=== PATIENT | female | born 1970 | race African-American/Black ===

== ENCOUNTER 2019-09-27 19:11 | Inpatient (IN) | payer MEDICARE ==
[~2019-09-27] VITALS: Ht 170.2 cm; Wt 125.7 kg
[2019-09-27 19:15] VITALS: BP 163/71
[2019-09-27] MEDS ORDERED: COREG6.25 MG ORAL (19:26)
[2019-09-27] MEDS ORDERED: LEXAPRO20 MG ORAL (19:26)
[2019-09-27] MEDS ORDERED: LEVOTHYROXINE125 MCG ORAL (19:26)
[2019-09-27] MEDS ORDERED: HYDROCHLOROTHIA25 MG ORAL (19:26)
--- NOTE | 2019-09-27 19:47 | Diagnostic Imaging Report ---
EXAM: XR Chest, 1 View CLINICAL HISTORY: CP TECHNIQUE: Frontal view of the chest. COMPARISON: No relevant prior studies available. FINDINGS: Lungs: Minimal left lower lobe subsegmental atelectasis. Minimal linear interstitial prominence incidental, or could represent atypical infection, or could represent an essential pulmonary edema in the proper clinical context. No consolidation, pleural effusion, or pneumothorax. Pleural space: See above. Heart: Unremarkable. No cardiomegaly. Mediastinum: Unremarkable. Bones/joints: Unremarkable. Other findings: If there is further clinical concern, recommend CT. IMPRESSION: 1. Minimal linear interstitial prominence incidental, or could represent atypical infection, or could represent an essential pulmonary edema in the proper clinical context. 2. Minimal left lower lobe subsegmental atelectasis. 3. Otherwise no acute cardiopulmonary disease. 4. If there is further clinical concern, recommend CT.
[2019-09-27] MEDS: Nitroglycerin Subl 0.4mg tab SL PRN (19:53)
--- NOTE | 2019-09-27 20:14 | Emergency Room Report ---
History of Present Illness General Chief Complaint: Chest Pain Source: Patient Present Illness HPI 49-year-old female presents ED complaining of chest pain. Started 3 days ago. Left-sided, dull 9/10, radiating down the left arm. Also notes shortness of breath. States she is compliant with her meds. Denies cough or runny nose or congestion. Denies sick contacts or recent travel. Notes some leg swelling. No other aggravating relieving factors. Denies any other associated symptoms Allergies: Coded Allergies: No Known Allergies (Unverified , 09/27/19) COVID-19 Screening Contact w/high risk pt: No Recent Travel to affected area: No Experienced COVID-19 symptoms?: No Patient History Past Medical History: DM, HTN Past Surgical History: none Pertinent Family History: none Social History: Denies: smoking, alcohol use, drug use Now: No Immunizations: UTD Reviewed Nursing Documentation: PMH: Agreed; PSxH: Agreed Nursing Documentation-PMH Hx Hypertension: Yes Hx Diabetes: Yes Review of Systems All Other Systems: negative except mentioned in HPI Physical Exam Vital Signs Date Time Temp Pulse Resp B/P (MAP) Pulse Ox O2 Delivery O2 Flow Rate FiO2 09/27/19 19:14 98.1 77 20 151/77 (101) 98 Room Air 09/27/19 19:15 98 [id number] EP Interpretation: reviewed, normal General Appearance: no apparent distress, alert, GCS 15, non-toxic, obese Head: normocephalic, atraumatic Eyes: bilateral eye normal inspection, bilateral eye PERRL ENT: hearing grossly normal, normal pharynx, no angioedema, normal voice Neck: full range of motion, supple/symm/no masses Respiratory: chest non-tender, normal breath sounds, crackles, speaking full sentences Cardiovascular #1: regular rate, rhythm, no edema Cardiovascular #2: 2+ carotid (R), 2+ carotid (L), 2+ radial (R), 2+ radial (L) , 2+ dorsalis pedis (R), 2+ dorsalis pedis (L) Gastrointestinal: normal bowel sounds, non tender, soft, non-distended, no guarding, no rebound Rectal: deferred Genitourinary: normal inspection, no CVA tenderness Musculoskeletal: back normal, normal range of motion, gait/station normal, non- tender Neurologic: alert, motor strength/tone normal, oriented x3, sensory intact, responsive, speech normal Psychiatric: judgement/insight normal, memory normal, mood/affect normal, no suicidal/homicidal ideation Reflexes: 3+ bicep (R), 3+ bicep (L), 3+ tricep (R), 3+ tricep (L), 3+ knee (R) , 3+ knee (L) Skin: other - see nursing skin notes Lymphatic: no adenopathy Medical Decision Making Diagnostic Impression: Primary Impression: ACS (acute coronary syndrome) ER Course Hospital Course 49-year-old female presents ED complaining of left-sided chest pain, shortness of breath Differential diagnoses include: [place]/unstable angina, contusion, muscle strain, PTX, rib fracture Clinical course Patient placed on stretcher. on desk monitor. After initial history and physical I ordered labs, EKG, chest x-ray, nitro labs reviewed- no leukocytosis, hb/hct stable, electrolytes ok, trop negative EKG - NSR, no acute ischemic changes interpreted by me Chest x-ray- no acute process given aspirin. Case discussed with Dr. Hightower and he agreed to accept the patient to his service for further care and support I. I feel this is a highly complex case requiring extensive working including EKG/Rhythm strip, Xray/CT/US, Blood/urine lab work, repeat exams while in ED, and administration of strong opiates/narcotics for pain control, admission to hospital or close patient follow up. Diagnosis - ACS admitted to telemetry in serious condition Labs Test 09/27/19 19:50 White Blood Count 7.8 K/UL (4.8-10.8) Red Blood Count 4.55 M/UL (4.20-5.40) Hemoglobin 12.5 G/DL (12.0-16.0) Hematocrit 40.1 % (37.0-47.0) Mean Corpuscular Volume 88 FL (80-99) Mean Corpuscular Hemoglobin 27.5 PG (27.0-31.0) Mean Corpuscular Hemoglobin Concent 31.2 G/DL (32.0-36.0) Red Cell Distribution Width 14.1 % (11.6-14.8) Platelet Count 280 K/UL (150-450) Mean Platelet Volume 6.6 FL (6.5-10.1) Neutrophils (%) (Auto) 52.9 % (45.0-75.0) Lymphocytes (%) (Auto) 36.1 % (20.0-45.0) Monocytes (%) (Auto) 6.1 % (1.0-10.0) Eosinophils (%) (Auto) 3.7 % (0.0-3.0) Basophils (%) (Auto) 1.3 % (0.0-2.0) Sodium Level 142 MMOL/L (136-145) Potassium Level 3.6 MMOL/L (3.5-5.1) Chloride Level 106 MMOL/L (98-107) Carbon Dioxide Level 28 MMOL/L (21-32) Anion Gap 8 mmol/L (5-15) Blood Urea Nitrogen 9 mg/dL (7-18) Creatinine 1.3 MG/DL (0.55-1.30) Estimat Glomerular Filtration Rate 52.5 mL/min (>60) Glucose Level 142 MG/DL (74-106) Calcium Level 8.3 MG/DL (8.5-10.1) Total Bilirubin 0.2 MG/DL (0.2-1.0) Aspartate Amino Transf (AST/SGOT) 13 U/L (15-37) Alanine Aminotransferase (ALT/SGPT) 19 U/L (12-78) Alkaline Phosphatase 112 U/L (46-116) Troponin I 0.000 ng/mL (0.000-0.056) Pro-B-Type Natriuretic Peptide 302 pg/mL (0-125) Total Protein 7.2 G/DL (6.4-8.2) Albumin 3.2 G/DL (3.4-5.0) Globulin 4.0 g/dL Albumin/Globulin Ratio 0.8 (1.0-2.7) Thyroid Stimulating Hormone (TSH) 0.472 uiU/mL (0.358-3.740) EKG Diagnostic Results Rate: normal Rhythm: NSR ST Segments: no acute changes ASA given to the pt in ED: Yes Rhythm Strip Diag. Results EP Interpretation: yes Rhythm: NSR, no PVC's, no ectopy Chest X-Ray Diagnostic Results Chest X-Ray Diagnostic Results : Chest X-Ray Ordered: Yes # of Views/Limited/Complete: 1 View Indication: Chest Pain EP Interpretation: Yes Interpretation: no pneumothorax, no acute cardiopulmonary disease, other - atelectasis lower lobe Impression: Other - atelectasis Electronically Signed by: Electronically signed by Kleechi Haddad MD Last Vital Signs Date Time Temp Pulse Resp B/P (MAP) Pulse Ox O2 Delivery O2 Flow Rate FiO2 09/27/19 19:53 169/87 09/27/19 19:15 81 20 Room Air 98 09/27/19 19:15 98.3 98 Status: improved Disposition: ADMITTED INPATIENT Condition: Serious Referrals: NON PHYSICIAN (PCP) Kelechi Haddad MD Sep 27, 2019 20:14
[2019-09-27 20:15] LABS: BASOPHILS % (AUTO) 1.3 % (0.0-2.0); EOSINOPHILS % (AUTO) 3.7 % (0.0-3.0); HEMATOCRIT 40.1 % (37.0-47.0); HEMOGLOBIN 12.5 G/DL (12.0-16.0); LYMPHOCYTES % (AUTO) 36.1 % (20.0-45.0); MEAN CORPUSCULAR VOLUME 88 FL (80-99); MONOCYTES % (AUTO) 6.1 % (1.0-10.0); NEUTROPHILS % (AUTO) 52.9 % (45.0-75.0); PLATELET COUNT 280 K/UL (150-450); RED BLOOD COUNT 4.55 M/UL (4.20-5.40); RED CELL DISTRIBUTION WIDTH 14.1 % (11.6-14.8); WHITE BLOOD COUNT 7.8 K/UL (4.8-10.8)
[2019-09-27 20:27] LABS: ANION GAP 8 mmol/L (5-15); BLOOD UREA NITROGEN 9 mg/dL (7-18); CALCIUM 8.3 MG/DL (8.5-10.1); CARBON DIOXIDE 28 MMOL/L (21-32); CHLORIDE 106 MMOL/L (98-107); CREATININE 1.3 MG/DL (0.55-1.30); POTASSIUM 3.6 MMOL/L (3.5-5.1); SODIUM 142 MMOL/L (136-145)
[2019-09-27 20:39] LABS: ALANINE AMINOTRANSFERASE 19 U/L (12-78); ALBUMIN 3.2 G/DL (3.4-5.0); ALBUMIN/GLOBULIN RATIO 0.8 (1.0-2.7); ALKALINE PHOSPHATASE 112 U/L (46-116); ASPARTATE AMINO TRANSFERASE 13 U/L (15-37); BILIRUBIN,TOTAL 0.2 MG/DL (0.2-1.0)
[2019-09-27 21:00] VITALS: BP 143/76
[2019-09-27 22:07] VITALS: BP 153/81
[2019-09-27 23:30] VITALS: BP 158/75
[2019-09-27] MEDS ORDERED: MYSOLINE50 M1 PO (23:51)
[2019-09-28] MEDS: Enoxaparin 40mg Inj SUBQ SCH ×2 (00:07→21:11)
[2019-09-28] MEDS: Nitroglycerin Subl 0.4mg tab SL PRN ×3 (00:10→00:32)
[2019-09-28 01:33] LABS: BASOPHILS % (AUTO) 1.2 % (0.0-2.0); EOSINOPHILS % (AUTO) 3.5 % (0.0-3.0); HEMATOCRIT 35.6 % (37.0-47.0); LYMPHOCYTES % (AUTO) 44.1 % (20.0-45.0); MEAN CORPUSCULAR VOLUME 83 FL (80-99); MONOCYTES % (AUTO) 5.4 % (1.0-10.0); NEUTROPHILS % (AUTO) 45.8 % (45.0-75.0); PLATELET COUNT 289 K/UL (150-450); RED BLOOD COUNT 4.28 M/UL (4.20-5.40); WHITE BLOOD COUNT 7.9 K/UL (4.8-10.8)
[2019-09-28 02:04] LABS: ANION GAP 9 mmol/L (5-15); BLOOD UREA NITROGEN 13 mg/dL (7-18); CALCIUM 8.7 MG/DL (8.5-10.1); CARBON DIOXIDE 27 MMOL/L (21-32); CHLORIDE 104 MMOL/L (98-107); CHOLESTEROL 148 MG/DL (< 200); CREATININE 1.2 MG/DL (0.55-1.30); HDL CHOLESTEROL 35 MG/DL (40-60); POTASSIUM 3.7 MMOL/L (3.5-5.1); SODIUM 140 MMOL/L (136-145); TRIGLYCERIDES 90 MG/DL (30-150)
[2019-09-28 04:00] VITALS: BP 152/73
[2019-09-28] MEDS: NovoLOG Insulin Flexpen SUBQ SCH ×5 (06:17→21:00)
[2019-09-28 08:00] VITALS: BP 150/79
[2019-09-28] MEDS: hydroCHLOROthiazide 25mg cap ORAL SCH (10:39)
[2019-09-28] MEDS: Carvedilol 6.25mg Tab ORAL SCH ×2 (10:40→21:09)
[2019-09-28] MEDS: Aspirin Baby 81mg ORAL SCH (10:40)
--- NOTE | 2019-09-28 11:27 | History and Physical ---
History of Present Illness General Date patient seen: Sep 28, 2019 Reason for Hospitalization: Chest Pain Present Illness HPI 49 yo F w/ Hx DM and HTN presented to the ED w/ 72 hrs of CP and SOB. CP is described as moderate to severe, left sided, radiation to left arm, associated with SOB. Pain is constant and waxes and wanes. She is unsure if pain is exacerbated by exertion. Pain is not reproducible to palpation. States she is compliant with her meds. Denies cough or runny nose or congestion. Denies sick contacts or recent travel. Notes some leg swelling. No other aggravating relieving factors. Denies any other associated symptoms. In the ED pt was afebrile and HDS. Labs notable for BNP 300. Initial Tn and EKG unremarkable. CXR showed some possible p edema but no major abn. Pt received ASA , SL NGT and some of her home meds including BB. At time of evaluation pt was comfortable. Admit for rule out ACS. Allergies: Coded Allergies: No Known Allergies (Unverified , 09/27/19) COVID-19 Screening Contact w/high risk pt: No Recent Travel to affected area: No Experienced COVID-19 symptoms?: No Medication History Scheduled Carvedilol (Coreg), 6.25 MG ORAL EVERY 12 HOURS, (Reported) Escitalopram Oxalate* (Lexapro*), 20 MG ORAL DAILY, (Reported) Hydrochlorothiazide* (Hydrochlorothiazide*), 25 MG ORAL DAILY, (Reported) Levothyroxine Sodium* (Levothyroxine Sodium*), 200 MCG ORAL DAILY, (Reported) Primidone (Mysoline), 50 MG PO THREE TIMES A DAY, (Reported) Patient History History Provided By: Patient, Medical Record Healthcare decision 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 [employer]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, 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 Resuscitation status Full Code Advanced Directive on File No Past Medical/Surgical History Past Medical/Surgical History: (1) DM (diabetes mellitus) (2) HTN (hypertension) (3) Depression (4) Hypothyroid Social History Social History: (1) Denies alcohol consumption (2) Depression (3) HTN (hypertension) (4) DM (diabetes mellitus) (5) Hypothyroid Review of Systems Constitutional: Denies: no symptoms, see HPI, chills, sweats, fever, malaise, weakness, other Eye: Denies: no symptoms, see HPI, eye pain, blurred vision, tearing, double vision, nose pain, nose congestion, acuity changes, discharge, other Respiratory: Denies: no symptoms, see HPI, cough, orthopnea, shortness of breath, stridor, wheezing, ROMAN, sputum, other Cardiovascular: Reports: see HPI Gastrointestinal: Denies: no symptoms, see HPI, abdominal pain, constipation, diarrhea, nausea, vomiting, melena, hematemesis, other Genitourinary: Denies: no symptoms, see HPI, discharge, dysuria, frequency, hematuria, pain, retention, incontinence, urgency, vag bleed/dc, other Musculoskeletal: Denies: no symptoms, see HPI, back pain, gout, joint pain, joint swelling, muscle pain, muscle stiffness, other Skin: Denies: no symptoms, see HPI, rash, change in color, change in hair/nails , dryness, lesions, other Neurological: Denies: no symptoms, see HPI, headache, numbness, paresthesia, seizure, tingling, tremors, focal weakness, syncope, dizziness, other Physical Exam General Appearance: WD/WN, no apparent distress HEENT: normocephalic, atraumatic, PERRL, EOMI, supple, no JVD Neck: normal inspection Respiratory/Chest: lungs clear, normal breath sounds, no respiratory distress, no accessory muscle use Cardiovascular/Chest: normal peripheral pulses, normal rate, regular rhythm, no gallop/murmur Abdomen: non tender, soft Extremities: no edema 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, responsive, normal mood/affect Last 24 Hour Vital Signs Date Time Temp Pulse Resp B/P (MAP) Pulse Ox O2 Delivery O2 Flow Rate FiO2 09/28/19 10:40 70 150/79 09/28/19 08:00 96.6 70 18 150/79 (102) 99 09/28/19 04:07 71 09/28/19 04:00 98.2 78 20 152/73 (99) 99 09/28/19 00:32 143/88 09/28/19 00:24 151/87 09/28/19 00:10 157/77 09/28/19 00:00 71 09/27/19 23:30 97.9 84 20 158/75 (102) 99 09/27/19 23:16 Room Air 09/27/19 22:35 98.1 75 20 153/81 98 Room Air 98 09/27/19 22:07 98.1 75 20 153/81 98 Room Air 98 09/27/19 21:00 84 20 143/76 98 Room Air 98 09/27/19 19:53 169/87 09/27/19 19:15 81 20 Room Air 98 09/27/19 19:15 98.3 81 20 163/71 98 Room Air 09/27/19 19:14 98.1 77 20 151/77 (101) 98 Room Air Intake and Output 09/27/19 09/28/19 19:00 07:00 Intake Total 390 ml Balance 390 ml Intake Oral 390 ml # Voids 2 Laboratory Tests Test 09/27/19 19:50 09/28/19 01:20 09/28/19 07:00 White Blood Count 7.8 K/UL (4.8-10.8) 7.9 K/UL (4.8-10.8) Red Blood Count 4.55 M/UL (4.20-5.40) 4.28 M/UL (4.20-5.40) Hemoglobin 12.5 G/DL (12.0-16.0) 12.0 G/DL (12.0-16.0) Hematocrit 40.1 % (37.0-47.0) 35.6 % (37.0-47.0) L Mean Corpuscular Volume 88 FL (80-99) 83 FL (80-99) Mean Corpuscular Hemoglobin 27.5 PG (27.0-31.0) 28.1 PG (27.0-31.0) Mean Corpuscular Hemoglobin Concent 31.2 G/DL (32.0-36.0) L 33.7 G/DL (32.0-36.0) Red Cell Distribution Width 14.1 % (11.6-14.8) 13.0 % (11.6-14.8) Platelet Count 280 K/UL (150-450) 289 K/UL (150-450) Mean Platelet Volume 6.6 FL (6.5-10.1) 5.7 FL (6.5-10.1) L Neutrophils (%) (Auto) 52.9 % (45.0-75.0) 45.8 % (45.0-75.0) Lymphocytes (%) (Auto) 36.1 % (20.0-45.0) 44.1 % (20.0-45.0) Monocytes (%) (Auto) 6.1 % (1.0-10.0) 5.4 % (1.0-10.0) Eosinophils (%) (Auto) 3.7 % (0.0-3.0) H 3.5 % (0.0-3.0) H Basophils (%) (Auto) 1.3 % (0.0-2.0) 1.2 % (0.0-2.0) Sodium Level 142 MMOL/L (136-145) 140 MMOL/L (136-145) Potassium Level 3.6 MMOL/L (3.5-5.1) 3.7 MMOL/L (3.5-5.1) Chloride Level 106 MMOL/L (98-107) 104 MMOL/L (98-107) Carbon Dioxide Level 28 MMOL/L (21-32) 27 MMOL/L (21-32) Anion Gap 8 mmol/L (5-15) 9 mmol/L (5-15) Blood Urea Nitrogen 9 mg/dL (7-18) 13 mg/dL (7-18) Creatinine 1.3 MG/DL (0.55-1.30) 1.2 MG/DL (0.55-1.30) Estimat Glomerular Filtration Rate 52.5 mL/min (>60) 57.7 mL/min (>60) Glucose Level 142 MG/DL (74-106) H 97 MG/DL (74-106) Calcium Level 8.3 MG/DL (8.5-10.1) L 8.7 MG/DL (8.5-10.1) Total Bilirubin 0.2 MG/DL (0.2-1.0) Aspartate Amino Transf (AST/SGOT) 13 U/L (15-37) L Alanine Aminotransferase (ALT/SGPT) 19 U/L (12-78) Alkaline Phosphatase 112 U/L (46-116) Troponin I 0.000 ng/mL (0.000-0.056) 0.000 ng/mL (0.000-0.056) 0.000 ng/mL (0.000-0.056) Pro-B-Type Natriuretic Peptide 302 pg/mL (0-125) H 300 pg/mL (0-125) H Total Protein 7.2 G/DL (6.4-8.2) Albumin 3.2 G/DL (3.4-5.0) L Globulin 4.0 g/dL Albumin/Globulin Ratio 0.8 (1.0-2.7) L Thyroid Stimulating Hormone (TSH) 0.472 uiU/mL (0.358-3.740) Hemoglobin A1c 8.0 % (4.3-6.0) H Magnesium Level 2.0 MG/DL (1.8-2.4) Triglycerides Level 90 MG/DL (30-150) Cholesterol Level 148 MG/DL (< 200) LDL Cholesterol 92 mg/dL (<100) HDL Cholesterol 35 MG/DL (40-60) L Cholesterol/HDL Ratio 4.2 (3.3-4.4) Height (Feet): 5 Height (Inches): 7.00 Weight (Pounds): 276 Medications Current Medications Medications (Trade) Dose Ordered Sig/Mohan Route PRN Reason Start Time Stop Time Status Last Admin Dose Admin Acetaminophen (Tylenol) 650 mg Q4H PRN ORAL Mild Pain (Pain Scale 1-3) 09/27/19 21:15 10/27/19 21:14 Acetaminophen (Tylenol) 650 mg Q4H PRN ORAL Temp >100.5 09/27/19 21:15 10/27/19 21:14 Aspirin (ASA) 81 mg DAILY ORAL 09/28/19 09:00 11/12/19 08:59 09/28/19 10:40 Atorvastatin Calcium (Lipitor) 40 mg BEDTIME ORAL 09/28/19 21:00 12/27/19 20:59 Carvedilol (Coreg) 6.25 mg EVERY 12 HOURS ORAL 09/28/19 09:00 10/28/19 08:59 09/28/19 10:40 Dextrose (Dextrose 50%) 25 ml Q30M PRN IV Hypoglycemia 09/27/19 21:15 12/26/19 21:14 Dextrose (Dextrose 50%) 50 ml Q30M PRN IV Hypoglycemia 09/27/19 21:15 12/26/19 21:14 Enoxaparin Sodium (Lovenox) 40 mg Q24H SUBQ 09/27/19 22:00 12/26/19 21:59 09/28/19 00:07 Escitalopram Oxalate (Lexapro) 20 mg DAILY ORAL 09/28/19 09:00 10/28/19 08:59 09/28/19 10:40 Hydrochlorothiazide (Hydrodiuril) 25 mg DAILY ORAL 09/28/19 09:00 10/28/19 08:59 09/28/19 10:39 Insulin Aspart (NovoLOG) BEFORE MEALS AND HS SUBQ 09/28/19 06:30 12/27/19 06:29 Levothyroxine Sodium (Synthroid) 200 mcg Q24H ORAL 09/28/19 06:30 10/28/19 06:29 09/28/19 06:17 Nitroglycerin (Ntg) 0.4 mg Q5M PRN SL Prn Chest Pain 09/27/19 20:00 10/27/19 19:59 09/28/19 00:32 Ondansetron HCl (Zofran) 4 mg Q6H PRN IVP Nausea & Vomiting 09/27/19 21:15 10/27/19 21:14 Primidone (Mysoline) 50 mg TID ORAL 09/28/19 09:00 10/28/19 08:59 09/28/19 10:40 Assessment/Plan Status: stable Assessment/Plan: 49 yo F w/ Hx DM, HTN, Hypothyroidism, Depression who presented to the ED w/ 72 hrs of CP and SOB. CP is described as moderate to severe, left sided, radiation to left arm, associated with SOB. #Atypical Chest pain - admit to in pt - cardiology consult - youth nutritional monitor - serial tn, ekg - TTE - asa, statin, coreg - pain control - supportive care #HTN - c/w home meds - ctm #Hypothyroidism - c/w home Synthroid #Depression - c/w home regimen #FEN/PPx - encourage po - trend chem, replete as needed - cardiac diet - Hep sub q & early ambulation CODE status - FULL w/ discussion I spent 65 min on this case and 29 min was dedicated to counseling and care coordination including discussion including communication w/ overnight coverage , consultants, RN at bedside and ER MD. An additional 20 min was dedicated to advanced care planning including discussion of acute and chronic medical issues, advanced directives, POLST, goals of care and CODE status. Pt wants aggressive med mgt and POLST will be completed before DC. Time of this note may not reflect the time of the clinical encounter. Seven Key MD Sep 28, 2019 11:27
[2019-09-28 12:00] VITALS: BP 146/78
--- NOTE | 2019-09-28 15:04 | Cardiac Electrophysiology PN ---
Subjective Subjective [id number] Objective Last 24 Hour Vital Signs Date Time Temp Pulse Resp B/P (MAP) Pulse Ox O2 Delivery O2 Flow Rate FiO2 09/28/19 12:00 78 09/28/19 12:00 98.1 70 18 146/78 (100) 100 09/28/19 10:40 70 150/79 09/28/19 08:00 78 09/28/19 08:00 96.6 70 18 150/79 (102) 99 09/28/19 04:07 71 09/28/19 04:00 98.2 78 20 152/73 (99) 99 09/28/19 00:32 143/88 09/28/19 00:24 151/87 09/28/19 00:10 157/77 09/28/19 00:00 71 09/27/19 23:30 97.9 84 20 158/75 (102) 99 09/27/19 23:16 Room Air 09/27/19 22:35 98.1 75 20 153/81 98 Room Air 98 09/27/19 22:07 98.1 75 20 153/81 98 Room Air 98 09/27/19 21:00 84 20 143/76 98 Room Air 98 09/27/19 19:53 169/87 09/27/19 19:15 81 20 Room Air 98 09/27/19 19:15 98.3 81 20 163/71 98 Room Air 09/27/19 19:14 98.1 77 20 151/77 (101) 98 Room Air Intake and Output 09/27/19 09/28/19 19:00 07:00 Intake Total 390 ml Balance 390 ml Intake Oral 390 ml # Voids 2 Laboratory Tests Test 09/27/19 19:50 09/28/19 01:20 09/28/19 07:00 09/28/19 13:20 White Blood Count 7.8 K/UL (4.8-10.8) 7.9 K/UL (4.8-10.8) Red Blood Count 4.55 M/UL (4.20-5.40) 4.28 M/UL (4.20-5.40) Hemoglobin 12.5 G/DL (12.0-16.0) 12.0 G/DL (12.0-16.0) Hematocrit 40.1 % (37.0-47.0) 35.6 % (37.0-47.0) L Mean Corpuscular Volume 88 FL (80-99) 83 FL (80-99) Mean Corpuscular Hemoglobin 27.5 PG (27.0-31.0) 28.1 PG (27.0-31.0) Mean Corpuscular Hemoglobin Concent 31.2 G/DL (32.0-36.0) L 33.7 G/DL (32.0-36.0) Red Cell Distribution Width 14.1 % (11.6-14.8) 13.0 % (11.6-14.8) Platelet Count 280 K/UL (150-450) 289 K/UL (150-450) Mean Platelet Volume 6.6 FL (6.5-10.1) 5.7 FL (6.5-10.1) L Neutrophils (%) (Auto) 52.9 % (45.0-75.0) 45.8 % (45.0-75.0) Lymphocytes (%) (Auto) 36.1 % (20.0-45.0) 44.1 % (20.0-45.0) Monocytes (%) (Auto) 6.1 % (1.0-10.0) 5.4 % (1.0-10.0) Eosinophils (%) (Auto) 3.7 % (0.0-3.0) H 3.5 % (0.0-3.0) H Basophils (%) (Auto) 1.3 % (0.0-2.0) 1.2 % (0.0-2.0) Sodium Level 142 MMOL/L (136-145) 140 MMOL/L (136-145) Potassium Level 3.6 MMOL/L (3.5-5.1) 3.7 MMOL/L (3.5-5.1) Chloride Level 106 MMOL/L (98-107) 104 MMOL/L (98-107) Carbon Dioxide Level 28 MMOL/L (21-32) 27 MMOL/L (21-32) Anion Gap 8 mmol/L (5-15) 9 mmol/L (5-15) Blood Urea Nitrogen 9 mg/dL (7-18) 13 mg/dL (7-18) Creatinine 1.3 MG/DL (0.55-1.30) 1.2 MG/DL (0.55-1.30) Estimat Glomerular Filtration Rate 52.5 mL/min (>60) 57.7 mL/min (>60) Glucose Level 142 MG/DL (74-106) H 97 MG/DL (74-106) Calcium Level 8.3 MG/DL (8.5-10.1) L 8.7 MG/DL (8.5-10.1) Total Bilirubin 0.2 MG/DL (0.2-1.0) Aspartate Amino Transf (AST/SGOT) 13 U/L (15-37) L Alanine Aminotransferase (ALT/SGPT) 19 U/L (12-78) Alkaline Phosphatase 112 U/L (46-116) Troponin I 0.000 ng/mL (0.000-0.056) 0.000 ng/mL (0.000-0.056) 0.000 ng/mL (0.000-0.056) 0.000 ng/mL (0.000-0.056) Pro-B-Type Natriuretic Peptide 302 pg/mL (0-125) H 300 pg/mL (0-125) H Total Protein 7.2 G/DL (6.4-8.2) Albumin 3.2 G/DL (3.4-5.0) L Globulin 4.0 g/dL Albumin/Globulin Ratio 0.8 (1.0-2.7) L Thyroid Stimulating Hormone (TSH) 0.472 uiU/mL (0.358-3.740) Hemoglobin A1c 8.0 % (4.3-6.0) H Magnesium Level 2.0 MG/DL (1.8-2.4) Triglycerides Level 90 MG/DL (30-150) Cholesterol Level 148 MG/DL (< 200) LDL Cholesterol 92 mg/dL (<100) HDL Cholesterol 35 MG/DL (40-60) L Cholesterol/HDL Ratio 4.2 (3.3-4.4) Stephon Chapman MD Sep 28, 2019 15:04
[2019-09-28] MEDS ORDERED: Lexiscan 0.4mg/5ml syringe IV PRN (15:15)
[2019-09-28 16:00] VITALS: BP 128/81
[2019-09-28 20:00] VITALS: BP 162/83
[2019-09-28] MEDS: Atorvastatin 20mg tab ORAL SCH (21:09)
[2019-09-29] VITALS: BP 145/78
--- NOTE | 2019-09-29 01:42 | Consultation ---
DATE OF CONSULTATION: 09/28/2019 CARDIOLOGY CONSULTATION CONSULTING PHYSICIAN: Stephon Chapman MD. REFERRING PHYSICIAN: Jhonatan Mcbride MD. REASON FOR CONSULTATION: Management of hypertension and chest pain. HISTORY OF PRESENT ILLNESS: The patient is a 49-year-old lady with history of hypertension and diabetes, who presented to the emergency room complaining of chest pain and shortness of breath. The pain was severe and left-sided with radiation to the left arm and associated with shortness of breath. The patient denies any prior myocardial infarction, coronary artery disease, or congestive heart failure. The patient's EKG shows normal sinus rhythm and essentially with normal electrocardiogram and had an echocardiogram that showed EF of 60% with no pericardial effusion. At the time of my evaluation, she denies any chest pain. Her BNP was 300. REVIEW OF SYSTEMS: Negative other than what was mentioned in history of present illness. PAST MEDICAL HISTORY: As mentioned above. FAMILY HISTORY: Noncontributory. SOCIAL HISTORY: She lives at home. Does not smoke or drink alcohol. MEDICATIONS AT HOME: Include Coreg 6.25 mg b.i.d., hydrochlorothiazide, Synthroid, and Mysoline. PHYSICAL EXAMINATION: VITAL SIGNS: Show blood pressure of 146/78, pulse 70, respirations 18, and temperature 98.1. HEAD AND NECK: Showed no JVD. 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 LUNGS: Clear. CARDIOVASCULAR: Shows regular S1 and S2 with no gallop or murmur. ABDOMEN: Soft. EXTREMITIES: No pitting edema. LABORATORY AND DIAGNOSTIC DATA: Labs show white count 7.9, hemoglobin 12, hematocrit 35.6, and platelet count 289,000. Sodium 140, potassium 3.7, BUN of 13, creatinine 1.5, glucose of 97. Troponin, negative x4. ASSESSMENT AND PLAN: 1. Chest pain in the patient with hypertension, diabetes, and obesity. The patient will be ruled out for myocardial infarction. EKG is completely normal. Echo now showed normal EF of 60%. We will proceed with a stress test for further evaluation. 2. Hypertension. Continue Coreg 6.25 mg b.i.d., hydrochlorothiazide 25 mg daily, and p.r.n. clonidine. 3. Hypothyroidism, on Synthroid. 4. Hyperlipidemia, on Lipitor. 5. Diabetes, on insulin. Thank you very much for allowing me to participate in the care of this patient. Please do not hesitate to contact for any questions regarding my evaluation. Stephon Chapman M.D. DR: CHRIS JOB#: [id number] CC:
[2019-09-29 04:00] VITALS: BP 133/80
[2019-09-29] MEDS: NovoLOG Insulin Flexpen SUBQ SCH ×4 (06:24→21:00)
[2019-09-29 08:00] VITALS: BP 140/83
[2019-09-29 08:05] LABS: BASOPHILS % (AUTO) 1.3 % (0.0-2.0); EOSINOPHILS % (AUTO) 3.8 % (0.0-3.0); HEMATOCRIT 37.9 % (37.0-47.0); HEMOGLOBIN 12.7 G/DL (12.0-16.0); LYMPHOCYTES % (AUTO) 43.8 % (20.0-45.0); MEAN CORPUSCULAR VOLUME 84 FL (80-99); NEUTROPHILS % (AUTO) 45.1 % (45.0-75.0); PLATELET COUNT 280 K/UL (150-450); RED BLOOD COUNT 4.51 M/UL (4.20-5.40); RED CELL DISTRIBUTION WIDTH 13.1 % (11.6-14.8); WHITE BLOOD COUNT 6.6 K/UL (4.8-10.8)
[2019-09-29] MEDS: hydroCHLOROthiazide 25mg cap ORAL SCH (08:56)
[2019-09-29] MEDS: Aspirin Baby 81mg ORAL SCH (08:57)
[2019-09-29] MEDS: Carvedilol 6.25mg Tab ORAL SCH ×2 (08:58→21:11)
[2019-09-29 09:03] LABS: ALANINE AMINOTRANSFERASE 14 U/L (12-78); ALBUMIN 3.2 G/DL (3.4-5.0); ALBUMIN/GLOBULIN RATIO 0.8 (1.0-2.7); ALKALINE PHOSPHATASE 105 U/L (46-116); ANION GAP 9 mmol/L (5-15); ASPARTATE AMINO TRANSFERASE 17 U/L (15-37); BILIRUBIN,TOTAL 0.4 MG/DL (0.2-1.0); BLOOD UREA NITROGEN 12 mg/dL (7-18); CARBON DIOXIDE 28 MMOL/L (21-32); CHLORIDE 101 MMOL/L (98-107); POTASSIUM 3.1 MMOL/L (3.5-5.1); SODIUM 138 MMOL/L (136-145)
--- NOTE | 2019-09-29 09:57 | General Progress Note ---
Assessment/Plan Status: stable Assessment/Plan: 49 yo F w/ Hx DM, HTN, Hypothyroidism, Depression who presented to the ED w/ 72 hrs of CP and SOB. CP is described as moderate to severe, left sided, radiation to left arm, associated with SOB. 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 - serial tn, ekg -> neg - TTE -> reviewed by cards, preserved ef - asa, statin, coreg - pain control - supportive care - Stress test prior to DC #HTN - c/w home meds - ctm #Hypokalemina - mag wnl on admit - replete po - repeat chem in am #Hypothyroidism - c/w home Synthroid #Depression - c/w home regimen #FEN/PPx - encourage po - trend chem, replete as needed - cardiac diet - Hep sub q & early ambulation CODE status - FULL w/ discussion I spent 40 min on this case and 21 min was dedicated to counseling and care coordination including discussion including communication w/ overnight coverage , consultants, RN at bedside. Time of this note may not reflect the time of the clinical encounter. Subjective Date patient seen: Sep 29, 2019 Allergies: Coded Allergies: No Known Allergies (Unverified , 09/27/19) Subjective CP resolved AVSS Pt in good spirits ACS ruled out Stress test today 12 pt ros neg except as above Objective Last 24 Hour Vital Signs Date Time Temp Pulse Resp B/P (MAP) Pulse Ox O2 Delivery O2 Flow Rate FiO2 09/29/19 08:58 76 140/83 09/29/19 04:00 79 09/29/19 04:00 98.3 71 18 133/80 (97) 98 09/29/19 00:00 96.6 67 18 145/78 (100) 95 09/29/19 00:00 68 09/28/19 21:09 75 128/81 09/28/19 21:00 Room Air 09/28/19 20:00 99.9 73 18 162/83 (109) 96 09/28/19 19:33 79 09/28/19 16:00 75 09/28/19 16:00 98.4 72 18 128/81 (97) 99 09/28/19 12:00 78 09/28/19 12:00 98.1 70 18 146/78 (100) 100 09/28/19 10:40 70 150/79 Intake and Output 09/28/19 09/29/19 19:00 07:00 Intake Total 480 ml Balance 480 ml Intake Oral 480 ml # Voids 4 2 Laboratory Tests 09/28/19 13:20: Troponin I 0.000 09/29/19 07:00: White Blood Count 6.6, Red Blood Count 4.51, Hemoglobin 12.7, Hematocrit 37.9, Mean Corpuscular Volume 84, Mean Corpuscular Hemoglobin 28.2, Mean Corpuscular Hemoglobin Concent 33.5, Red Cell Distribution Width 13.1, Platelet Count 280, Mean Platelet Volume 5.5L, Neutrophils (%) (Auto) 45.1, Lymphocytes (%) (Auto) 43.8, Monocytes (%) (Auto) 6.0, Eosinophils (%) (Auto) 3.8H, Basophils (%) (Auto ) 1.3, Sodium Level 138, Potassium Level 3.1L, Chloride Level 101, Carbon Dioxide Level 28, Anion Gap 9, Blood Urea Nitrogen 12, Creatinine 1.0, Estimat Glomerular Filtration Rate > 60, Glucose Level 106, Calcium Level 9.0, Total Bilirubin 0.4, Aspartate Amino Transf (AST/SGOT) 17, Alanine Aminotransferase ( ALT/SGPT) 14, Alkaline Phosphatase 105, Total Protein 7.2, Albumin 3.2L, Globulin 4.0, Albumin/Globulin Ratio 0.8L Height (Feet): 5 Height (Inches): 7.00 Weight (Pounds): 276 Objective General Appearance: WD/WN, no apparent distress HEENT: normocephalic, atraumatic, PERRL, EOMI, supple, no JVD Neck: normal inspection Respiratory/Chest: lungs clear, normal breath sounds, no respiratory distress, no accessory muscle use Cardiovascular/Chest: normal peripheral pulses, normal rate, regular rhythm, no gallop/murmur Abdomen: non tender, soft Extremities: no edema 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
[2019-09-29 12:00] VITALS: BP 145/73
[2019-09-29 16:00] VITALS: BP 126/78
[2019-09-29 20:00] VITALS: BP 149/94
[2019-09-29] MEDS: Atorvastatin 20mg tab ORAL SCH (21:11)
[2019-09-29] MEDS: Enoxaparin 40mg Inj SUBQ SCH (21:11)
[2019-09-30] VITALS: BP 133/81
[2019-09-30 04:00] VITALS: BP 135/64
[2019-09-30] MEDS: NovoLOG Insulin Flexpen SUBQ SCH ×3 (06:30→16:30)
[2019-09-30 07:07] LABS: EOSINOPHILS % (AUTO) 3.6 % (0.0-3.0); HEMATOCRIT 39.2 % (37.0-47.0); HEMOGLOBIN 13.1 G/DL (12.0-16.0); LYMPHOCYTES % (AUTO) 41.1 % (20.0-45.0); MEAN CORPUSCULAR VOLUME 84 FL (80-99); MONOCYTES % (AUTO) 5.7 % (1.0-10.0); NEUTROPHILS % (AUTO) 48.7 % (45.0-75.0); PLATELET COUNT 299 K/UL (150-450); RED BLOOD COUNT 4.68 M/UL (4.20-5.40); RED CELL DISTRIBUTION WIDTH 12.7 % (11.6-14.8); WHITE BLOOD COUNT 7.1 K/UL (4.8-10.8)
[2019-09-30 07:42] LABS: ALANINE AMINOTRANSFERASE 18 U/L (12-78); ALBUMIN 3.2 G/DL (3.4-5.0); ALBUMIN/GLOBULIN RATIO 0.8 (1.0-2.7); ALKALINE PHOSPHATASE 106 U/L (46-116); ANION GAP 10 mmol/L (5-15); ASPARTATE AMINO TRANSFERASE 24 U/L (15-37); BILIRUBIN,TOTAL 0.4 MG/DL (0.2-1.0); BLOOD UREA NITROGEN 13 mg/dL (7-18); CALCIUM 9.1 MG/DL (8.5-10.1); CARBON DIOXIDE 27 MMOL/L (21-32); CHLORIDE 100 MMOL/L (98-107); POTASSIUM 3.4 MMOL/L (3.5-5.1); SODIUM 137 MMOL/L (136-145)
[2019-09-30 08:00] VITALS: BP 130/64
--- NOTE | 2019-09-30 08:15 | General Progress Note ---
Assessment/Plan Status: stable Assessment/Plan: 49 yo F w/ Hx DM, HTN, Hypothyroidism, Depression who presented to the ED w/ 72 hrs of CP and SOB. CP is described as moderate to severe, left sided, radiation to left arm, associated with SOB. 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 - serial tn, ekg -> neg - TTE -> reviewed by cards, preserved ef 60% - asa, statin, coreg - pain control - supportive care - Plan for Stress test today - d/c home w/HH - CM for d/c planning #HTN - c/w home meds, coreg, hctz - prn clonidine - ctm #Hypokalemina - mag wnl on admit - replete po - repeat chem in am #Hypothyroidism - c/w home Synthroid #Depression - c/w home regimen #FEN/PPx - encourage po - trend chem, replete as needed - cardiac diet - Hep sub q & early ambulation CODE status - FULL w/ discussion I spent 35 min on this case and 21 min was dedicated to counseling and care coordination including discussion including communication w/ overnight coverage , consultants, RN at bedside. Additional 34 mins was spent on non-face to face time on chart review, review of H&P, progress notes, previous labs and radiographic findings. Time of this note may not reflect the time of the clinical encounter. Subjective Allergies: Coded Allergies: No Known Allergies (Unverified , 09/27/19) Subjective Follow-up for chest pain. Patient denies any CP at this time, states she is eager to go home. Objective Last 24 Hour Vital Signs Date Time Temp Pulse Resp B/P (MAP) Pulse Ox O2 Delivery O2 Flow Rate FiO2 09/30/19 04:00 97.6 82 18 135/64 (87) 97 09/30/19 04:00 77 09/30/19 00:00 76 09/30/19 00:00 97.7 74 18 133/81 (98) 98 09/29/19 21:11 74 149/94 09/29/19 21:00 Room Air 09/29/19 20:00 97.7 74 18 149/94 (112) 97 09/29/19 20:00 69 09/29/19 16:00 98.1 71 18 126/78 (94) 95 09/29/19 16:00 70 4/26/20 12:00 74 09/29/19 12:00 96.6 73 17 145/73 (97) 100 09/29/19 09:00 Room Air 09/29/19 08:58 76 140/83 Intake and Output 09/29/19 09/30/19 19:00 07:00 Intake Total 600 ml Balance 600 ml Intake Oral 600 ml # Voids 3 2 Laboratory Tests 09/30/19 05:58: White Blood Count 7.1, Red Blood Count 4.68, Hemoglobin 13.1, Hematocrit 39.2, Mean Corpuscular Volume 84, Mean Corpuscular Hemoglobin 28.1, Mean Corpuscular Hemoglobin Concent 33.5, Red Cell Distribution Width 12.7, Platelet Count 299, Mean Platelet Volume 5.6L, Neutrophils (%) (Auto) 48.7, Lymphocytes (%) (Auto) 41.1, Monocytes (%) (Auto) 5.7, Eosinophils (%) (Auto) 3.6H, Basophils (%) (Auto ) 1.0, Sodium Level 137, Potassium Level 3.4L, Chloride Level 100, Carbon Dioxide Level 27, Anion Gap 10, Blood Urea Nitrogen 13, Creatinine 1.0, Estimat Glomerular Filtration Rate > 60, Glucose Level 111H, Calcium Level 9.1, Total Bilirubin 0.4, Aspartate Amino Transf (AST/SGOT) 24, Alanine Aminotransferase ( ALT/SGPT) 18, Alkaline Phosphatase 106, Total Protein 7.3, Albumin 3.2L, Globulin 4.1, Albumin/Globulin Ratio 0.8L Height (Feet): 5 Height (Inches): 7.00 Weight (Pounds): 276 Objective General Appearance: WD/WN, no apparent distress, sitting up in bed comfortably HEENT: NCAT, EOMI, MMM Neck: normal inspection Respiratory/Chest: lungs clear, normal breath sounds, no respiratory distress, no accessory muscle use Cardiovascular/Chest: normal peripheral pulses, normal rate, regular rhythm, no gallop/murmur Abdomen: non tender, soft Extremities: no edema 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 Sep 30, 2019 08:15
[2019-09-30] MEDS: Carvedilol 6.25mg Tab ORAL SCH (09:36)
[2019-09-30] MEDS: hydroCHLOROthiazide 25mg cap ORAL SCH (09:36)
[2019-09-30] MEDS: Aspirin Baby 81mg ORAL SCH (09:36)
[2019-09-30] MEDS ORDERED: LIPITOR20 MG ORAL (11:37)
[2019-09-30] MEDS ORDERED: ASPIRIN81 MG ORAL (11:37)
[2019-09-30 12:00] VITALS: BP_SYST 143; BP_SYST 158; BP_DIAS 66; BP_DIAS 76
--- NOTE | 2019-09-30 15:25 | Cardiac Electrophysiology PN ---
Subjective Subjective Scheduled for nuclear stress test today. Objective Last 24 Hour Vital Signs Date Time Temp Pulse Resp B/P (MAP) Pulse Ox O2 Delivery O2 Flow Rate FiO2 09/30/19 12:00 97.9 68 18 143/76 (98) 94 09/30/19 09:36 76 130/64 09/30/19 09:00 Room Air 09/30/19 08:00 98.1 75 18 130/64 (86) 93 09/30/19 08:00 76 09/30/19 04:00 97.6 82 18 135/64 (87) 97 09/30/19 04:00 77 09/30/19 00:00 76 09/30/19 00:00 97.7 74 18 133/81 (98) 98 09/29/19 21:11 74 149/94 09/29/19 21:00 Room Air 09/29/19 20:00 97.7 74 18 149/94 (112) 97 09/29/19 20:00 69 09/29/19 16:00 98.1 71 18 126/78 (94) 95 09/29/19 16:00 70 Intake and Output 09/29/19 09/30/19 19:00 07:00 Intake Total 600 ml Balance 600 ml Intake Oral 600 ml # Voids 3 2 Laboratory Tests Test 09/30/19 05:58 White Blood Count 7.1 K/UL (4.8-10.8) Red Blood Count 4.68 M/UL (4.20-5.40) Hemoglobin 13.1 G/DL (12.0-16.0) Hematocrit 39.2 % (37.0-47.0) Mean Corpuscular Volume 84 FL (80-99) Mean Corpuscular Hemoglobin 28.1 PG (27.0-31.0) Mean Corpuscular Hemoglobin Concent 33.5 G/DL (32.0-36.0) Red Cell Distribution Width 12.7 % (11.6-14.8) Platelet Count 299 K/UL (150-450) Mean Platelet Volume 5.6 FL (6.5-10.1) L Neutrophils (%) (Auto) 48.7 % (45.0-75.0) Lymphocytes (%) (Auto) 41.1 % (20.0-45.0) Monocytes (%) (Auto) 5.7 % (1.0-10.0) Eosinophils (%) (Auto) 3.6 % (0.0-3.0) H Basophils (%) (Auto) 1.0 % (0.0-2.0) Sodium Level 137 MMOL/L (136-145) Potassium Level 3.4 MMOL/L (3.5-5.1) L Chloride Level 100 MMOL/L (98-107) Carbon Dioxide Level 27 MMOL/L (21-32) Anion Gap 10 mmol/L (5-15) Blood Urea Nitrogen 13 mg/dL (7-18) Creatinine 1.0 MG/DL (0.55-1.30) Estimat Glomerular Filtration Rate > 60 mL/min (>60) Glucose Level 111 MG/DL (74-106) H Calcium Level 9.1 MG/DL (8.5-10.1) Total Bilirubin 0.4 MG/DL (0.2-1.0) Aspartate Amino Transf (AST/SGOT) 24 U/L (15-37) Alanine Aminotransferase (ALT/SGPT) 18 U/L (12-78) Alkaline Phosphatase 106 U/L (46-116) Total Protein 7.3 G/DL (6.4-8.2) Albumin 3.2 G/DL (3.4-5.0) L Globulin 4.1 g/dL Albumin/Globulin Ratio 0.8 (1.0-2.7) L Objective 1. Chest pain in the patient with hypertension, diabetes, and obesity. Was ruled out for myocardial infarction. EKG is completely normal. Echo showed normal EF of 60%. Stress test results pending today. 2. Hypertension. On Coreg 6.25 mg bid, HCTZ 25 mg daily and p.r.n. clonidine. 3. Hypothyroidism, on Synthroid. 4. Hyperlipidemia, on Lipitor. 5. Diabetes, on insulin. Stephon Chapman MD Sep 30, 2019 15:25
--- NOTE | 2019-09-30 15:54 | Diagnostic Imaging Report ---
Indications: Chest pain Technique: Single day single isotope protocol utilized. Initially, resting images obtained using IV administration 10.6 millicuries 99M technetium Myoview. These were acquired supine. Subsequently, patient underwent lexiscan stress testing. See cardiology report for details. During Lexiscan infusion, IV administration 29 point mCi 99m technetium Myoview. SPECT and planar images obtained both supine and prone. SPECT images gated to 8 phases of the cardiac cycle were also obtained, and reformatted into cine images for evaluation of ejection fraction. Comparison: none Findings: Presence or absence of symptoms during infusion is not described in the cardiology report.. Per cardiology report, resting EKG demonstrates normal sinus rhythm with new T-wave inversion suggestive of inferior wall ischemia. Presence or absence of ST changes during infusion is not described. Imaging demonstrates equivocal decreased perfusion in the inferolateral wall on the supine post stress images which is not evident on the resting images. This presents but is less striking on the prone post stress images. Calculated post stress ejection fraction 67%. No focal wall motion abnormality Impression: Nonischemic clinical response to pharmacologic stress, per cardiology report Ischemic electrocardiographic response to pharmacologic stress, per cardiology report Equivocal reversible inferolateral post stress perfusion defect; if real could indicate an area of reversible ischemia Calculated post stress ejection fraction 67%
[2019-09-30 16:00] VITALS: BP 129/78
--- NOTE | 2019-09-30 16:56 | Discharge Summary ---
Discharge Summary Hospital Course Date of Admission Sep 27, 2019 at 20:00 Date of Discharge Admitting Diagnosis ACUTE CORONARY SYNDROME/ SOB HPI Melissa Ribeiro is a 49 year old female who was admitted on Sep 27, 2019 at 20:00 for Acute Coronary Syndrome, Shortness Of Breath Hospital Course 49 yo F w/ Hx DM, HTN, Hypothyroidism, Depression who presented to the ED w/ 72 hrs of CP and SOB. CP is described as moderate to severe, left sided, radiation to left arm, associated with SOB. ACS was ruled out. Pt underwent stress test which was negative. Pt to be d/c home w/home health, instructions to f/u w/PCP as o/p in 1 week. #Atypical Chest pain #HTN #Hypokalemina #Hypothyroidism #Depression D/C planning >30 mins. Discharge Condition Upon Discharge: stable Discharge Vital Signs Last Vital Signs Date Time Temp Pulse Resp B/P (MAP) Pulse Ox O2 Delivery O2 Flow Rate FiO2 09/30/19 16:00 65 09/30/19 16:00 97.7 18 129/78 (95) 99 09/30/19 09:00 Room Air 09/27/19 22:35 98 Discharge Disposition Patient was discharged to home w/HH. Paolo Brooke M.D. Sep 30, 2019 16:56
--- NOTE | 2019-10-02 09:30 | Coder Physician Query ---
Clarification is required for compliance, coding accuracy, and to reflect severity of illness for this patient Dear Dr. Brooke Date: 10/02/19 Testing And Regulating Technician/CDS' Name: KevonGREGORY Chest pain in the patient with hypertension, diabetes, and obesity. The patient will be ruled out for myocardial infarction. EKG is completely normal. Echo now showed normal EF of 60%. Please document the suspected etiology of Chest Pain: [] Costochondritis [] Acute Coronary Syndrome [] Pericarditis [] Anxiety [] Pneumothorax [X] GERD/Esophagitis [] Pulmonary embolism [] Other: [] Unable to determine Physician signature Date Please also document in your Progress Notes and/or Discharge Summary and indicate if the condition was present on admission. SMITH
== END 2019-09-30 19:40 | disposition home or self-care (01) | DRG 392 ==
LOC: EMR 19:45 → EDBEDREQ 19:49 → 2E 20:00 → EDBEDREQ 21:52 → 2E 22:43
DX: K21.9 Gastro-esophageal reflux disease without esophagitis (principal); E11.9 Type 2 diabetes mellitus without complications; I10 Essential (primary) hypertension; F32.9 Major depressive disorder, single episode, unspecified; E03.9 Hypothyroidism, unspecified; E66.9 Obesity, unspecified
CPT/HCPCS: 36415; 71045; 78452; 80048; 80053; 80061; 82962; 83036; 83735; 83880; 84443; 84484; 85025; 93005; 93017; 93306; 96374; 99285; J1815; J2785; J8499